=== PATIENT | male | born 1955 | race Caucasian/White ===

== ENCOUNTER 2018-08-17 12:28 | Inpatient (IN) | payer OTHER ==
[~2018-08-17] VITALS: Ht 185.4 cm; Wt 88.5 kg
[2018-08-17] MEDS ORDERED: LOTREL 10-40 M1 EACH PO (12:52)
[2018-08-17] MEDS ORDERED: [UNRECOGNIZED DRUG - OTHER] PO (12:52)
[2018-08-17] MEDS ORDERED: AMILODIPINE PO (12:53)
[2018-08-17] MEDS ORDERED: SINGULAIR10 MG PO (12:53)
[2018-08-17] MEDS ORDERED: ZYRTEC10 M3 PO (12:53)
[2018-08-17] MEDS ORDERED: MOBIC15 MG PO (12:54)
[2018-08-17] MEDS ORDERED: PROTONIX40 MG PO (12:54)
[2018-08-17] MEDS ORDERED: ZANAFLEX4 M1 PO (12:55)
[2018-08-17] MEDS ORDERED: MELOXICAM15 MG PO (12:55)
[2018-08-17] MEDS ORDERED: REMERON15 MG PO (12:55)
[2018-08-17] MEDS ORDERED: CELEXA20 MG PO (12:56)
[2018-08-26] MEDS ORDERED: DOCUSATE SODIU100 MG PO (07:59)
[2018-08-26] MEDS ORDERED: PERCOCET 5-3251 EACH PO (08:00)
[2018-08-26] MEDS ORDERED: CLONAZEPAM1 MG PO (08:00)
== END 2018-08-26 11:56 | disposition home or self-care (01) | DRG 454 ==
LOC: O/R 08-25 04:20 → SURH 08-25 07:00
PROVIDERS: Orthopaedic Surgery Orthopaedic Surgery of the Spine
PROC: 0RG2071 Fusion of 2 or more Cervical Vertebral Joints with Autologous Tissue Substitute, Posterior Approach, Posterior Column, Open Approach (ICD-10-PCS; 2018-08-25)
PROC: 0RT30ZZ Resection of Cervical Vertebral Disc, Open Approach (ICD-10-PCS; 2018-08-25)
PROC: 07DS3ZZ Extraction of Vertebral Bone Marrow, Percutaneous Approach (ICD-10-PCS; 2018-08-25)
PROC: 0RG20A0 Fusion of 2 or more Cervical Vertebral Joints with Interbody Fusion Device, Anterior Approach, Anterior Column, Open Approach (ICD-10-PCS; principal; 2018-08-25 07:00)
DX: M50.022 Cervical disc disorder at C5-C6 level with myelopathy (principal); M47.12 Other spondylosis with myelopathy, cervical region; I10 Essential (primary) hypertension

== ENCOUNTER 2019-09-15 11:56 | Outpatient (CLI) | payer OTHER ==
[~2019-09-15 11:56] MED LIST: AMILODIPINE PO; CELEXA20 MG PO; CLONAZEPAM1 MG PO; DOCUSATE SODIU100 MG PO; LOTREL 10-40 M1 EACH PO; MELOXICAM15 MG PO; MOBIC15 MG PO; PERCOCET 5-3251 EACH PO; PROTONIX40 MG PO; REMERON15 MG PO; SINGULAIR10 MG PO; ZANAFLEX4 M1 PO; ZYRTEC10 M3 PO; [UNRECOGNIZED DRUG - OTHER] PO
== END 2019-09-15 13:57 | disposition home or self-care (01) ==
LOC: RAD 11:56
DX: M48.061 Spinal stenosis, lumbar region without neurogenic claudication (principal); M81.0 Age-related osteoporosis without current pathological fracture